=== PATIENT | male | born 1990 ===

== ENCOUNTER 2017-04-05 09:37 | Emergency (ER) | payer OTHER ==
[2017-04-05] MEDS ORDERED: Naproxen 550 mg Tab PO STA (10:33)
[2017-04-05] MEDS ORDERED: Albuterol-Ipratrop 3 mg / 0.5 (3 ml) UD IH STA (10:33)
--- NOTE | 2017-04-05 10:33 | C.PDOC ---
History Of Present Illness 26 year old male presents to the ED c/o myalgia, headache and subjective fever for the past 2 days. Patient states he uses albuterol daily but has being using more since being sick. Patient reports he ran out of medications yesterday, currently c/o asthma exacerbation. Patient denies CP, chills, nausea, vomit, diarrhea, other associated symptoms. CO MYALGIA, BAIRD AND SUBJ FEVER X 2 DAYS. PS USES ALBUTEROL DAILY BUT HAD TO USE MORE SINCE BEING SICK. RAN OUT OF MEDS YESTERDAY. CO ASTHMA EXAC. NO OTHER ASSOC SX EXAM NONTOXIC HEENT NEG LUNGS +OCC EXP WHEEZE SPEAKING FULL SENTENCES, NO RETRACTION REMAINDER NEG Time Seen by Provider: 04/05/17 10:22 Chief Complaint (Nursing): Flu-like Symptoms History Per: Patient History/Exam Limitations: no limitations Onset/Duration Of Symptoms: Days Current Symptoms Are (Timing): Still Present Location Of Pain: Diffuse Myalgias, Headache Sick Contacts (Context): None Associated Symptoms: Fever, Myalgias. denies: Chills Ear Symptoms: Bilateral: None Recent travel outside of the [place]: No Additional History Per: Patient Past Medical History Reviewed: Historical Data, Nursing Documentation, Vital Signs Vital Signs: Last Vital Signs Temp 98.3 F 04/05/17 11:15 Pulse 92 H 04/05/17 11:15 Resp 20 04/05/17 11:15 BP 128/82 04/05/17 11:15 Pulse Ox 97 04/05/17 11:47 - Medical History PMH: Asthma Surgical History: No Surg Hx Family History: States: Unknown Family Hx - Social History Hx Alcohol Use: Yes Hx Substance Use: No - Immunization History Hx Tetanus Toxoid Vaccination: No Hx Influenza Vaccination: No Hx Pneumococcal Vaccination: No Review Of Systems Constitutional: Positive for: Fever, Other (Myalgias). Negative for: Chills ENT: Negative for: Nose Congestion, Throat Pain Cardiovascular: Negative for: Chest Pain Respiratory: Negative for: Cough, Shortness of Breath Gastrointestinal: Negative for: Nausea, Vomiting, Abdominal Pain Skin: Negative for: Rash Neurological: Positive for: Headache. Negative for: Weakness, Numbness Physical Exam - Physical Exam Appears: Non-toxic, No Acute Distress Skin: Normal Color, Warm, Dry Head: Atraumatic, Normacephalic Eye(s): bilateral: Normal Inspection, PERRL Ear(s): Bilateral: Normal Nose: No Discharge, No Deformity Oral Mucosa: Moist Throat: Normal, No Erythema, No Exudate Neck: Normal ROM, Supple Chest: Symmetrical Cardiovascular: Rhythm Regular, No Murmur Respiratory: No Rales, No Rhonchi, Wheezing (occasional expiratory wheeze), Other (speaking in full sentences, no retraction) Extremity: Normal ROM, No Pedal Edema, No Calf Tenderness, No Deformity, No Swelling Neurological/Psych: Oriented x3, Normal Speech, Normal Cognition Gait: Steady ED Course And Treatment O2 Sat by Pulse Oximetry: 97 (On RA) Pulse Ox Interpretation: Normal Medical Decision Making Medical Decision Making: Impression : myalfia, headache, subjective fever Plan: * Anaprox 550 mg PO * Albuterol 3 ml INH * Tamilfu 75 mg PO * Tylenol 650 mg PO * Prednisone 60 mg PO * Nebulizer treatment Disposition Counseled Patient/Family Regarding: Diagnosis, Need For Followup, Rx Given - Disposition Referrals: [facility] [Outside] at [facility] [Outside] Disposition: HOME/ ROUTINE Disposition Time: 11:00 Condition: IMPROVED Prescriptions: Acetaminophen [Tylenol 325mg tab] 650 mg PO Q6 #30 tab Albuterol HFA [Ventolin HFA 90 mcg/actuation (8 g)] 1 puff IH Q4 #1 inhaler Ibuprofen [Motrin] 600 mg PO Q6 #30 tab Oseltamivir [Tamiflu] 75 mg PO BID #9 cap predniSONE [Prednisone] 60 mg PO DAILY #12 tab Instructions: Asthma (ED), Influenza (ED) Forms: [employer] (Bolivian) - Clinical Impression Clinical Impression: Influenza-like illness, Asthma exacerbation - Scribe Statement The provider has reviewed the documentation as recorded by the Scribe Enmanuel Kimbrough All medical record entries made by the Scribe were at my direction and personally dictated by me. I have reviewed the chart and agree that the record accurately reflects my personal performance of the history, physical exam, medical decision making, and the department course for this patient. I have also personally directed, reviewed, and agree with the discharge instructions and disposition.
[2017-04-05] MEDS ORDERED: Naproxen 550 mg Tab PO ONE (10:59)
[2017-04-05] MEDS ORDERED: Albuterol-Ipratrop 3 mg / 0.5 (3 ml) UD ONE (11:00)
[2017-04-05 11:35] VITALS: BP 128/82; PULSE 92; RESP 20; TEMP 98.3
[2017-04-05 11:42] VITALS: O2SAT 97
== END 2017-04-05 11:15 | disposition home or self-care (01) ==
LOC: C.ER 09:37
DX: J11.1 Influenza due to unidentified influenza virus with other respiratory manifestations (principal); J45.901 Unspecified asthma with (acute) exacerbation

== ENCOUNTER 2018-02-24 10:03 | Emergency (ER) | payer SELFPAY ==
[2018-02-24 10:13] VITALS: BP 111/64; PULSE 59; TEMP 98.9; O2SAT 98
[2018-02-24] MEDS ORDERED: Naproxen 550 mg Tab PO STA (10:41)
[2018-02-24] MEDS ORDERED: Naproxen 550 mg Tab PO ONE (10:51)
--- NOTE | 2018-02-24 11:24 | C.PDOC ---
History Of Present Illness 27 year old male, with no significant past medical history, presents to the ED for evaluation of bilateral mid-lower back pain which began two days ago. Patient took Tylenol last night without relief. He denies fever, chills, cough, dysuria, hematuria, abdominal pain, radiation of pain or trauma to the area. Time Seen by Provider: 02/24/18 10:12 Chief Complaint (Nursing): Back Pain History Per: Patient History/Exam Limitations: no limitations Onset/Duration Of Symptoms: Days (2) Current Symptoms Are (Timing): Still Present Quality Of Discomfort: "Pain" Previous Symptoms: Back Pain Additional History Per: Patient Past Medical History Reviewed: Historical Data, Nursing Documentation, Vital Signs Vital Signs: Last Vital Signs Temp 98.9 F 02/24/18 10:12 Pulse 59 L 02/24/18 10:12 Resp BP 111/64 02/24/18 10:12 Pulse Ox 98 02/24/18 10:12 - Medical History PMH: Asthma Surgical History: No Surg Hx Family History: States: Unknown Family Hx - Social History Hx Alcohol Use: Yes Hx Substance Use: No - Immunization History Hx Tetanus Toxoid Vaccination: No Hx Influenza Vaccination: No Hx Pneumococcal Vaccination: No Review Of Systems Constitutional: Negative for: Fever, Chills Respiratory: Negative for: Cough Gastrointestinal: Negative for: Abdominal Pain Genitourinary: Negative for: Dysuria, Hematuria Musculoskeletal: Positive for: Back Pain (mid-lower, bilaterally ) Physical Exam - Physical Exam Appears: Non-toxic, Other (in mild painful distress ) Skin: Normal Color, Warm, Dry Head: Atraumatic, Normacephalic Eye(s): bilateral: Normal Inspection Oral Mucosa: Moist Neck: Supple Chest: Symmetrical, No Deformity, No Tenderness Cardiovascular: Rhythm Regular, No Murmur Respiratory: Normal Breath Sounds, No Rales, No Rhonchi, No Wheezing Gastrointestinal/Abdominal: Soft, No Tenderness, No Guarding, No Rebound Back: No CVA Tenderness, No Vertebral Tenderness, Paraspinal Tenderness (around T12-L1 level ) Extremity: Normal ROM, Capillary Refill (less than 2 seconds ) Neurological/Psych: Oriented x3, Normal Speech, Normal Cognition Gait: Steady ED Course And Treatment O2 Sat by Pulse Oximetry: 98 (on RA) Pulse Ox Interpretation: Normal Progress Note: Naproxen PO and Flexeril PO given. On reassessment, patient is resting comfortably, showing no signs of distress and reports an improvement in his symptoms. Patient is ambulatory in the ED with a steady gait and is stable for discharge. He will be given Rx for Naproxen and Flexeril and advised to f/u with his PMD within 1-2 days for further evaluation. Advised to return to the ED if symptoms worsen. Disposition Counseled Patient/Family Regarding: Diagnosis, Need For Followup, Rx Given - Disposition Referrals: [facility] [Outside] Disposition: HOME/ ROUTINE Disposition Time: 11:25 Condition: STABLE Additional Instructions: FOLLOW UP WITH YOUR DOCTOR/CLINIC IN 1-2 DAYS USE MEDICATIONS NEEDED RETURN TO EMERGENCY ROOM IF SYMPTOMS WORSEN SEGUIR CON BAUER [place] / [place] EN 1-2 ROMERO UTILICE MEDICAMENTOS MELANIE SE NECESITE VUELVA A LA SHAHZAD DE EMERGENCIA SI LOS SNTOMAS ESTN PEOR Prescriptions: Cyclobenzaprine [Flexeril] 10 mg PO BID PRN #15 tab PRN Reason: Muscle Spasm Naproxen 375 mg PO BID PRN #20 tablet PRN Reason: pain Instructions: Low Back Pain (DC) Forms: [employer] (Dutch) Print Language: BRUNEIAN - POA Present On Arrival: None - Clinical Impression Clinical Impression: Low back strain, Lumbar sprain - Scribe Statement The provider has reviewed the documentation as recorded by the Scribe (Elo Barrios) Provider Attestation: All medical record entries made by the Scribe were at my direction and personally dictated by me. I have reviewed the chart and agree that the record accurately reflects my personal performance of the history, physical exam, medical decision making, and the department course for this patient. I have also personally directed, reviewed, and agree with the discharge instructions and disposition.
== END 2018-02-24 11:48 | disposition home or self-care (01) ==
LOC: C.ER 10:03
DX: S39.012A Strain of muscle, fascia and tendon of lower back, initial encounter (principal); S33.5XXA Sprain of ligaments of lumbar spine, initial encounter; X58.XXXA Exposure to other specified factors, initial encounter